=== PATIENT | male | born 1935 | race Caucasian/White ===

== ENCOUNTER 2018-05-16 12:48 | Emergency (ER) | payer MEDICARE, OTHER ==
[~2018-05-16] VITALS: Ht 177.8 cm; Wt 68.6 kg
[~2018-05-16 12:48] MED LIST: DIME25TA2 PO
[2018-05-16 13:17] VITALS: BP 138/79
[2018-05-16] MEDS ORDERED: HYDR-3965 PO (16:37)
== END 2018-05-16 16:48 | disposition home or self-care (01) ==
LOC: ER 12:49
DX: S93.401A Sprain of unspecified ligament of right ankle, initial encounter (principal); Z88.5 Allergy status to narcotic agent; Z79.899 Other long term (current) drug therapy; X50.1XXA Overexertion from prolonged static or awkward postures, initial encounter; Y93.89 Activity, other specified; Y92.89 Other specified places as the place of occurrence of the external cause; Y99.8 Other external cause status
CPT/HCPCS: 72170; 73610; 99284

== ENCOUNTER 2022-06-17 14:38 | Emergency (ER) | payer MEDICARE, OTHER ==
[~2022-06-17] VITALS: Ht 177.8 cm; Wt 75.0 kg
[2022-06-17] MEDS ORDERED: HYDROcodone/acetaminophen 10/325mg tab PO ONE (16:40)
[2022-06-17] MEDS ORDERED: HYDR-3965 PO (16:58)
[2022-06-17 18:09] VITALS: BP 99/66
== END 2022-06-17 18:11 | disposition home or self-care (01) ==
LOC: ER 14:38
DX: S00.81XA Abrasion of other part of head, initial encounter (principal); R07.81 Pleurodynia; W18.39XA Other fall on same level, initial encounter; Y93.89 Activity, other specified; Y92.89 Other specified places as the place of occurrence of the external cause; Y99.8 Other external cause status
CPT/HCPCS: 70450; 71101; 99284